=== PATIENT | male | born 1975 | race Caucasian/White ===

== ENCOUNTER 2019-04-06 14:16 | Emergency (ER) | payer OTHER ==
[2019-04-06] MEDS ORDERED: methylPREDNISolone 125 MG* 2 ML VIAL IV ONE (14:22)
[2019-04-06] MEDS ORDERED: Famotidine IV* 10 MG/ML 2 ML (20 mg) IV SLOW PU ONE (14:22)
[2019-04-06] MEDS ORDERED: diPHENhydraMINE IV* 50 MG/ML 1 ml VIAL (BENADRYL) IV ONE (14:22)
[2019-04-06] MEDS ORDERED: EPINEPHRINE 1 MG/ML 1 ML VIAL IM ONE (14:23)
[2019-04-06] MEDS ORDERED: NS 0.9% 1000 ML** 1,000 ML IV ONE (14:23)
--- NOTE | 2019-04-06 14:29 | ED ---
Allergic Reaction/Systemic - HPI Summary HPI Summary: This patient is a 43 year old M presenting to [facility] with a chief complaint of allergic reaction after bee sting [employer]. Pt has had anaphylaxis before. Patient denies vomiting and diarrhea. He has no other PMHx problems. - History of Current Complaint Chief Complaint: EDAllergicReaction Time Seen by Provider: 04/06/19 14:20 Hx Obtained From: Patient Onset/Duration: Sudden Onset, Still Present Timing: Constant, Lasting Minutes Severity Currently: None Pain Intensity: 0 Pain Scale Used: 0-10 Numeric Character: Pain Aggravating Factor(s): Nothing Alleviating Factor(s): Epinephrine Associated Signs And Symptoms: Negative: Vomiting - Allergies/Home Medications Allergies/Adverse Reactions: Allergies Allergy/AdvReac Type Severity Reaction Status Date / Time bee venom protein (honey bee) Allergy Anaphylatic Verified 04/06/19 14:23 Shock Penicillins Allergy Anaphylatic Verified 04/06/19 14:23 Shock PMH/Surg Hx/FS Hx/Imm Hx Sensory History: Denies: Hx Legally Blind, Hx Deafness Opthamlomology History: Denies: Hx Legally Blind EENT History: Denies: Hx Deafness - Surgical History Surgical History: None Infectious Disease History: No Infectious Disease History: Denies: Traveled Outside the [place] in Last 30 Days - Family History Known Family History: Negative: Blood Disorder - Social History Occupation: Employed Full-time Alcohol Use: None Hx Substance Use: No Substance Use Type: Reports: None Hx Tobacco Use: No Smoking Status (MU): Never Smoked Tobacco Review of Systems Positive: Shortness Of Breath Negative: Diarrhea, Nausea All Other Systems Reviewed And Are Negative: Yes Physical Exam - Summary Physical Exam Summary: Constitutional: Well-developed, Well-nourished, Alert. (-) Distressed Skin: Warm, Dry HENT: Normocephalic; Atraumatic Eyes: Conjunctiva normal Neck: Musculoskeletal ROM normal neck. (-) JVD, (-) Stridor, (-) Tracheal deviation Cardio: Heart sounds normal; Intact distal pulses; The pedal pulses are 2+ and symmetric. Radial pulses are 2+ and symmetric. (-) Murmur, Borderline tachycardic, Pulmonary/Chest wall: Effort normal. (-) Respiratory distress, (-) Wheezes, (-) Rales, No stridor no wheezing Abd: Soft, (-) tenderness, (-) Distension, (-) Guarding, (-) Rebound Musculoskeletal: (-) Edema Lymph: (-) Cervical adenopathy Neuro: Alert, Oriented x3 Psych: Mood and affect Normal Triage Information Reviewed: Yes Vital Signs On Initial Exam: Initial Vitals Temp Pulse Resp BP Pulse Ox 98.4 F 119 20 135/95 97 04/06/19 14:21 04/06/19 14:21 04/06/19 14:21 04/06/19 14:21 04/06/19 14:21 Vital Signs Reviewed: Yes Diagnostics - Vital Signs Vital Signs Temp Pulse Resp BP Pulse Ox 04/06/19 14:21 98.4 F 119 20 135/95 97 - Laboratory Lab Statement: Any lab studies that have been ordered have been reviewed, and results considered in the medical decision making process. Re-Evaluation - Re-Evaluation First Eval Re-Evaluation Time: 15:16 Comment: Feeling better. Second Eval Comment: Discussed plan for discharge. Allergic Reaction Course/Dx - Course Course Of Treatment: Patient is brought in with anaphylaxis secondary to bee sting. Patient's had anaphylaxis in the past. Patient is complaining of shortness of breath so I am epinephrine was given. Patient was also given Solu- Medrol, IV fluids, Benadryl, Pepcid. Patient was monitored with resolution of symptoms. Patient was discharged with a prescription for an EpiPen. - Diagnoses Provider Diagnoses: Anaphylaxis, Bee sting - Critical Care Time Critical Care Time: 30-74 min - 30 mins Discharge ED - Sign-Out/Discharge Documenting (check all that apply): Patient Departure - Discharge Patient Received Moderate/Deep Sedation with Procedure: No - Discharge Plan Condition: Stable Disposition: HOME Prescriptions: EPINEPHrine [Epipen 2-Shaheen] 0.3 mg IM ONCE PRN #1 inj PRN Reason: anaphylaxis Patient Education Materials: Insect Bite or Sting (ED), Anaphylaxis (ED) Referrals: Ryan Gross MD [Primary Care Provider] - Additional Instructions: Come back if you have any worsening trouble breathing. In future use epinephrine pen when you start feeling this way and call 911 at the same time. PLEASE RETURN TO EMERGENCY DEPARTMENT FOR ANY NEW OR WORSENING SYMPTOMS. Please follow up with your primary care physician. - Billing Disposition and Condition Condition: STABLE Disposition: Home - Attestation Statements Document Initiated by Scribe: Yes Documenting Scribe: Shelly Arreola Provider For Whom Scribe is Documenting (Include Credential): Kofi Blevins Scribe Attestation: I, Shelly Arreola, scribed for Kofi Blevins on 04/06/19 at 2146. Scribe Documentation Reviewed: Yes Provider Attestation: The documentation as recorded by the galinaibeShelly accurately reflects the service I personally performed and the decisions made by Kofi campbell Status of Scribe Document: Viewed
[2019-04-06 17:00] VITALS: BP 115/75
== END 2019-04-06 16:40 | disposition home or self-care (01) ==
LOC: ED 14:16
DX: T63.441A Toxic effect of venom of bees, accidental (unintentional), initial encounter (principal); R06.02 Shortness of breath; Y92.9 Unspecified place or not applicable; Z88.0 Allergy status to penicillin; Z91.030 Bee allergy status
CPT/HCPCS: 96361; 96374; 96375; 99283; J1200; J2930